=== PATIENT | male | born 1985 | race Caucasian/White ===

== ENCOUNTER 2021-04-15 05:39 | Emergency (ER) | payer OTHER ==
[~2021-04-15] VITALS: Ht 180.3 cm; Wt 81.6 kg
[2021-04-15] MEDS ORDERED: MUPIROCIN15 GM TOP (07:15)
== END 2021-04-15 07:47 | disposition home or self-care (01) ==
LOC: ER 05:39
DX: S01.111A Laceration without foreign body of right eyelid and periocular area, initial encounter (principal); X58.XXXA Exposure to other specified factors, initial encounter; Y92.89 Other specified places as the place of occurrence of the external cause